=== PATIENT | male | born 1965 | race African-American/Black ===

== ENCOUNTER 2023-05-26 16:36 | Emergency (ER) | payer MEDICARE, MEDICAID ==
[~2023-05-26] VITALS: Ht 172.7 cm; Wt 120.0 kg
[2023-05-26 17:17] VITALS: BP 140/79; PULSE 97; RESP 16; TEMP 98.8; O2SAT 99
[2023-05-27] MEDS ORDERED: SULF1TAB48 MT (00:13)
[2023-05-27 05:05] LABS: CLARITY URINE CLEAR (CLEAR); COLOR URINE YELLOW (YELLOW); GLUCOSE URINE NEGATIVE (NEGATIVE); KETONES URINE NEGATIVE (NEGATIVE); PH URINE 5.5 (4.5-8.0); PROTEIN URINE TRACE (NEGATIVE); SPECIFIC GRAVITY URINE 1.011 (1.005-1.030)
[2023-05-27 05:06] LABS: LEUKOCYTE ESTERASE URINE 3+ (NEGATIVE); NITRITE URINE NEGATIVE (NEGATIVE); OCCULT BLOOD URINE 2+ (NEGATIVE); UROBILINOGEN URINE 0.2 E.U./dL (0.2-1.0)
[2023-05-27 06:04] LABS: BACTERIA URINE 1+; RBC URINE 0-2 /hpf (0-2); SQUAMOUS EPITHELIAL CELL URINE 1+ /lpf (RARE/1+); WBC URINE TNTC /hpf (0-2)
== END 2023-05-27 03:16 | disposition home or self-care (01) ==
LOC: ER 16:36
DX: T83.028A Displacement of other urinary catheter, initial encounter (principal)
CPT/HCPCS: 81003; 99283